=== PATIENT | male | born 1995 | race Caucasian/White ===

== ENCOUNTER 2020-09-22 15:35 | Outpatient (CLI) | payer OTHER, SELFPAY ==
--- NOTE | 2020-09-22 15:46 | MR_ITS ---
WS: [id number] MRI CERVICAL SPINE NONCONTRAST HISTORY: CHRONIC NECK PAIN COMPARISON: Cervical radiographs 08/18/2020 Technique: Multiplanar, multisequence noncontrast imaging of the cervical spine. Normal cervical alignment with no compression fracture or significant disc space narrowing. Signal within the cervical cord is normal. Visualized posterior fossa is unremarkable. Craniocervical junction, C1 and C2 relationship, odontoid process and soft tissues are normal. C2-C3: Normal. C3-C4: Normal. C4-C5: Very minimal developing osteophytes along the endplates. No significant stenosis or encroachme nt upon the nerve roots or cord. C5-C6: Minimal osteophytic ridging with no encroachment upon the nerve roots or cord. C6-C7: Normal. C7-T1: Normal. Paraspinal soft tissue are normal. MR/MR cervical spin wo con* [id number] IMPRESSION: 1. No significant disc herniations or stenosis. 2. Minimal spondylosis at C4-5 and C5-6.
== END 2020-09-22 15:36 | disposition home or self-care (01) ==
PROVIDERS: PCP Nurse Practitioner Family; Visit Provider Nurse Practitioner Family
DX: M54.2 Cervicalgia (principal); G89.29 Other chronic pain; M47.812 Spondylosis without myelopathy or radiculopathy, cervical region
CPT/HCPCS: 72141

== ENCOUNTER → 2024-11-24 08:08 | Outpatient (BNVA) | payer OTHER, SELFPAY | PROVIDERS: PCP Nurse Practitioner Family; Visit Provider Nurse Practitioner Family | DX: I10 Essential (primary) hypertension (principal); E78.5 Hyperlipidemia, unspecified; R53.83 Other fatigue | CPT/HCPCS: 80053; 80061; 84403; 84439; 84443; 85025 ==